=== PATIENT | female | born 1960 | race Caucasian/White ===

== ENCOUNTER 2016-09-22 14:15 | Emergency (ER) | payer MEDICARE, OTHER ==
[~2016-09-22 14:15] MED LIST: ABREVA2 GM; ANTIVERT25 MG PO; CHILDRENS CHEWA81 MG PO; COD PO; CYMBALTA30 MG PO; DUONEB 2.5-0.5MG3 ML NEB; ELAVIL25 MG PO; IBUPROFEN800 MG PO; K-DUR20 MEQ PO; KLONOPIN1 MG PO; LASIX40 MG PO; LOPRESSOR100 MG PO; NABUMETONE750 MG PO; NEURONTIN600 MG PO; NICODERM 14MG PA1 EA TD; NITROGLYCERIN0.4 MG SL; NORVASC5 MG PO; OXYCODONE-ACET1 EAC1 PO; PANTOPRAZOLE SO40 MG PO; PHENERGAN25 M1 PO; PRAVACHOL20 MG PO; RESTORIL30 MG PO; ROBITUSSIN100 MG/5 M PO; TESSALON PERLE100 MG PO; TOPROL XL100 MG PO; TYLENOL PO; TYLENOL325 M1 PO; VITAMIN D250000 UNIT PO; WELLBUTRIN100 MG PO
[2016-09-22 15:20] LABS: BASO % 0.1 % (0.1-1.2); EOS # 0.2 10_X3_uL (0.0-0.4); EOS % 1.8 % (0.7-5.8); GRAN # 5.3 10_X3_uL (1.6-6.1); GRAN % 59.7 % (34.0-71.1); HEMATOCRIT 36.7 % (34-45); HEMOGLOBIN 11.9 g/dL (11.2-15.7); LYMPH % 33.3 % (19.3-51.7); MEAN CORPUSCULAR HEMOGLOBIN 31.6 pg (27.0-33.0); MEAN CORPUSCULAR HGB CONC 32.4 g/dL (32.0-36.0); MEAN CORPUSCULAR VOLUME 97.6 fL (79-95); MEAN PLATELET VOLUME 10.9 fl (7.5-11.5); MONO # 0.5 10_X3_uL (0.2-0.9); MONO % 5.1 % (4.7-12.5); PLATELET COUNT 281 x10_3/uL (182-369); RED BLOOD COUNT 3.76 x10_6/uL (3.9-5.2); RED CELL DISTRIBUTION WIDTH 14.9 % (11.7-14.4); WHITE BLOOD COUNT 8.9 x10_3/uL (4.0-10.0)
[2016-09-22 16:06] LABS: ALBUMIN 4.2 gm/dL (3.4-5.0); ALKALINE PHOSPHATASE 115 U/L (50-136); ALT/SGPT 16 U/L (3.5-33.9); AST/SGOT 18 U/L (7.04-26.96); BILIRUBIN,TOTAL < 0.15 mg/dL (0.0-1.0); BLOOD UREA NITROGEN 11 mg/dL (7-18); CALCIUM 8.9 mg/dL (8.7-10.7); CARBON DIOXIDE 23 mmol/L (21-32); CREATINE KINASE 109 U/L (21-215); CREATININE 0.5 mg/dL (0.6-1.3); GLUCOSE,RANDOM 89 mg/dL (70-99); POTASSIUM 3.7 mmol/L (3.5-5.1); SODIUM 142 mmol/L (136-145); TOTAL PROTEIN 7.3 gm/dL (6.4-8.2)
== END 2016-09-22 17:10 | disposition home or self-care (01) ==
LOC: ER 14:15
PROVIDERS: Internal Medicine
DX: J44.0 Chronic obstructive pulmonary disease with (acute) lower respiratory infection (principal); J20.9 Acute bronchitis, unspecified; I25.10 Atherosclerotic heart disease of native coronary artery without angina pectoris; F17.210 Nicotine dependence, cigarettes, uncomplicated; Z88.5 Allergy status to narcotic agent
CPT/HCPCS: 36415; 71020; 80053; 82550; 82553; 85025; 87040; 93005; 94664; 96372; 99283-25; 99284; J2930